=== PATIENT | male | born 2005 | race Caucasian/White ===

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

== ENCOUNTER → 2024-02-27 | Outpatient (CLI) | payer OTHER | END | disposition home or self-care (01) | LOC: MRI 02:54 | PROVIDERS: ATTEND Orthopaedic Surgery | DX: M75.81 Other shoulder lesions, right shoulder (principal); M79.89 Other specified soft tissue disorders; M25.511 Pain in right shoulder ==

== ENCOUNTER 2024-04-13 02:43 | Emergency (ER) | payer OTHER ==
[~2024-04-13] VITALS: Ht 175.2 cm; Wt 81.6 kg
[2024-04-13 02:50] VITALS: BP 106/72
[2024-04-13] MEDS ORDERED: SODIUM CHLORIDE 0.9% 1,000 ML IV ONE (02:55)
[2024-04-13] MEDS ORDERED: diphenhydrAMINE hydrochloride 50 MG/ML VIAL IV ONE (03:00)
[2024-04-13] MEDS ORDERED: Metoclopramide Hydrochloride 10 MG/2 ML AMP IV ONE (03:00)
[2024-04-13 03:12] LABS: BASO # 0.1 10*3/uL (0.0-0.1); BASO % 0.6 % (0.0-1.0); EOS # 0.4 10*3/uL (0.0-0.4); EOS % 3.4 % (1.0-4.0); HEMATOCRIT 45.7 % (42.0-52.0); LYMPH # 2.2 10*3/uL (1.3-4.4); LYMPH % 17.2 % (27.0-41.0); MEAN CELL VOLUME 89.4 fl (80.0-94.0); MEAN CORPUSCULAR HGB 30.9 pg (27.0-31.0); MEAN CORPUSCULAR HGB CONC 34.6 g/dl (33.0-37.0); MEAN PLATELET VOLUME 9.4 fl (9.6-12.3); MONO # 1.1 10*3/uL (0.1-1.0); MONO % 8.8 % (3.0-9.0); NEUT # 8.6 10*3/uL (2.3-7.9); NEUT % 69.4 % (47.0-73.0); PLATELET COUNT AUTOMATED 288 10*3/uL (130-400); RED BLOOD COUNT 5.11 10*6/uL (4.50-5.90); WHITE BLOOD COUNT 12.5 10*3/uL (4.8-10.8)
[2024-04-13 03:36] LABS: ALKALINE PHOSPHATASE 105 U/L (46-116); BUN 9 mg/dl (9-23); CHLORIDE 103 mmol/L (98-107); LIPASE 42 U/L (12-53); POTASSIUM 3.6 mmol/L (3.4-5.1); SGPT/ALT 28 U/L (5-49); TOTAL PROTEIN 7.9 gm/dL (6.0-8.0)
[2024-04-13] MEDS ORDERED: REGLAN10 M1 PO (04:22)
== END 2024-04-13 04:40 | disposition home or self-care (01) ==
LOC: ED 02:43
PROVIDERS: Internal Medicine
DX: R10.9 Unspecified abdominal pain (principal); R11.2 Nausea with vomiting, unspecified; J45.909 Unspecified asthma, uncomplicated; F90.9 Attention-deficit hyperactivity disorder, unspecified type; Z88.0 Allergy status to penicillin; Z98.890 Other specified postprocedural states

== ENCOUNTER 2024-12-22 09:10 | Emergency (ER) | payer OTHER ==
[~2024-12-22] VITALS: Ht 175.2 cm; Wt 95.3 kg
[~2024-12-22 09:10] MED LIST changes: +REGLAN10 M1 PO
[2024-12-22 09:23] VITALS: BP 110/88
[2024-12-22] MEDS ORDERED: ACETAMINOPHEN 325 MG TAB PO ONE (09:30)
[2024-12-22] MEDS ORDERED: Ondansetron Hydrochloride 4 MG TAB PO ONE (09:30)
[2024-12-22] MEDS ORDERED: Ondansetron Hydrochloride 4 MG TAB ONE (09:53)
[2024-12-22] MEDS ORDERED: ACETAMINOPHEN 325 MG TAB ONE (09:53)
[2024-12-22] MEDS ORDERED: TAMIFLU 75MG CA75 MG PO (10:30)
== END 2024-12-22 10:33 | disposition home or self-care (01) ==
LOC: ED 09:10
DX: J10.1 Influenza due to other identified influenza virus with other respiratory manifestations (principal); J45.909 Unspecified asthma, uncomplicated; Z20.822 Contact with and (suspected) exposure to COVID-19; Z88.0 Allergy status to penicillin

== ENCOUNTER 2025-03-14 12:24 | Emergency (ER) | payer OTHER ==
[~2025-03-14] VITALS: Ht 177.8 cm; Wt 95.3 kg
[~2025-03-14 12:24] MED LIST changes: +TAMIFLU 75MG CA75 MG PO
[2025-03-14 12:28] VITALS: BP 117/68
== END 2025-03-14 15:30 | disposition home or self-care (01) ==
LOC: ED 12:24
DX: S93.401A Sprain of unspecified ligament of right ankle, initial encounter (principal); M79.672 Pain in left foot; Z88.0 Allergy status to penicillin; X50.1XXA Overexertion from prolonged static or awkward postures, initial encounter; Y93.89 Activity, other specified; Y92.89 Other specified places as the place of occurrence of the external cause; Y99.8 Other external cause status